=== PATIENT | female | born 1965 | race Hispanic/Latino ===

== ENCOUNTER 2018-04-07 13:41 | Emergency (ER) | payer OTHER | END 2018-04-07 14:40 | disposition home or self-care (01) | LOC: EDH 13:41 | DX: J10.1 Influenza due to other identified influenza virus with other respiratory manifestations (principal); Z90.710 Acquired absence of both cervix and uterus; Z98.890 Other specified postprocedural states; Z88.2 Allergy status to sulfonamides ==